=== PATIENT | female | born 1980 | race Two or more races ===

== ENCOUNTER 2020-10-16 08:43 | Inpatient (IN) | payer OTHER ==
[~2020-10-16] VITALS: Ht 172.7 cm; Wt 112.1 kg
[2020-10-16 09:49] LABS: Basophils # (auto) 0 10 ^3/uL (0-0.2); Basophils % (auto) 0.2 % (0.0-2.0); Eosinophils # (auto) 0 10 ^3/uL (0-0.8); Hematocrit 37.6 % (36.0-46.0); Hemoglobin 12.7 g/dL (12.2-16.2); Lymphocytes # (auto) 0.8 10 ^3/uL (0.4-5.4); Lymphocytes % (auto) 9.8 % (10.0-50.0); Mean Corpuscular Hgb Conc. 33.7 g/dL (32.0-36.0); Mean Corpuscular Volume 82.9 fL (80.0-100.0); Monocytes # (auto) 0.3 10 ^3/uL (0-1.3); Monocytes % (auto) 3.2 % (0.0-12.0); Neutrophils # (auto) 7.1 10 ^3/uL (1.6-8.6); Neutrophils % (auto) 86.8 % (37.0-80.0); Platelet Count (auto) 259 10^3/uL (140-450); Red Blood Cells 4.54 10^6/uL (4.0-5.20); Red Cell Distribution Width 13.1 % (11.8-14.3); White Blood Cell 8.2 10^3/uL (4.4-10.8)
[2020-10-16 10:18] LABS: Albumin 3.1 g/dL (3.4-5.0); Calcium 8.4 mg/dL (8.5-10.1); Potassium 3.1 mmol/L (3.5-5.1)
[2020-10-16 10:24] LABS: BUN/Creatinine Ratio 10.9; Bilirubin, Total 0.4 mg/dL (0.2-1.0); Total Protein 8.2 g/dL (6.4-8.2)
[2020-10-16] MEDS ORDERED: cefTRIAXone 1GM/50ML D5W 50 ML IV ONE (11:15)
[2020-10-16] MEDS ORDERED: DexAMETHasone SOD PHOS 10MG/1ML VIAL INJ IV ONE (11:15)
[2020-10-16] MEDS ORDERED: POTASSIUM EFFERVESENT TAB 25 MEQ PO ONE (11:15)
[2020-10-16] MEDS ORDERED: AZITHROMYCIN 500MG/ 250ML 250 ML IV ONE (11:15)
[2020-10-16 11:36] LABS: CRP High Sensitivity 8.63 mg/dL (< 0.3)
[2020-10-16] MEDS ORDERED: NITROGLYCERIN 0.4 MG SL TAB SL PRN (13:00)
[2020-10-16] MEDS ORDERED: MORPHINE SULF INJ 2 MG/ML SYRINGE 1ML IV PRN (13:00)
[2020-10-16 13:12] LABS: Urine Amorphous Crystal FEW /hpf (None Seen); Urine Bacteria MANY /hpf (None Seen); Urine Blood Negative /uL (Negative); Urine Mucus FEW (None Seen); Urine Specific Gravity 1.013 (1.001-1.035); Urine WBC 14 /hpf (0 - 5)
[2020-10-16] MEDS ORDERED: POTASSIUM CHL 20 Meq TABLET PO ONE (13:30)
[2020-10-16 19:28] LABS: Basophils # (auto) 0 10 ^3/uL (0-0.2); Basophils % (auto) 0.1 % (0.0-2.0); Eosinophils # (auto) 0 10 ^3/uL (0-0.8); Hematocrit 37.4 % (36.0-46.0); Hemoglobin 12.7 g/dL (12.2-16.2); Lymphocytes # (auto) 0.5 10 ^3/uL (0.4-5.4); Lymphocytes % (auto) 8.4 % (10.0-50.0); Mean Corpuscular Hemoglobin 28.2 pg (28.0-32.0); Monocytes # (auto) 0.1 10 ^3/uL (0-1.3); Monocytes % (auto) 2.1 % (0.0-12.0); Neutrophils # (auto) 5.2 10 ^3/uL (1.6-8.6); Neutrophils % (auto) 89.4 % (37.0-80.0); Nucleated Red Blood Cells % 0.1 %; Platelet Count (auto) 269 10^3/uL (140-450); Red Cell Distribution Width 13.1 % (11.8-14.3); White Blood Cell 5.9 10^3/uL (4.4-10.8)
[2020-10-16 19:45] LABS: Albumin 2.9 g/dL (3.4-5.0); Calcium 8.1 mg/dL (8.5-10.1); Magnesium 2.3 mg/dL (1.6-2.6); Potassium 3.7 mmol/L (3.5-5.1)
[2020-10-16 19:53] LABS: BUN/Creatinine Ratio 13.5; Bilirubin, Total 0.3 mg/dL (0.2-1.0); CRP High Sensitivity 9.62 mg/dL (< 0.3); Total Protein 8.3 g/dL (6.4-8.2)
[2020-10-16 22:40] VITALS: BP 110/56
[2020-10-17] VITALS: BP_SYST 110; BP_SYST 122; BP_DIAS 56; BP_DIAS 74
[2020-10-17 08:00] VITALS: BP 120/74
[2020-10-17] MEDS ORDERED: REMDESIVIR PER PHARMACY 0 ML IV SCH (09:00)
[2020-10-17] MEDS: ENOXAPARIN SOD 120 MG/0.8 ML SYRINGE SC SCH ×2 (09:18→21:40)
[2020-10-17] MEDS ORDERED: IOHEXOL 350 MG/ML 100ML IJ ONE (09:26)
[2020-10-17 10:26] LABS: Basophils # (auto) 0 10 ^3/uL (0-0.2); Basophils % (auto) 0.3 % (0.0-2.0); Eosinophils # (auto) 0 10 ^3/uL (0-0.8); Hematocrit 36.1 % (36.0-46.0); Lymphocytes # (auto) 1.1 10 ^3/uL (0.4-5.4); Lymphocytes % (auto) 8.4 % (10.0-50.0); Mean Corpuscular Hemoglobin 27.9 pg (28.0-32.0); Mean Corpuscular Hgb Conc. 33.4 g/dL (32.0-36.0); Mean Corpuscular Volume 83.7 fL (80.0-100.0); Monocytes # (auto) 0.7 10 ^3/uL (0-1.3); Neutrophils # (auto) 11.6 10 ^3/uL (1.6-8.6); Neutrophils % (auto) 86.3 % (37.0-80.0); Nucleated Red Blood Cells % 0.1 %; Platelet Count (auto) 262 10^3/uL (140-450); Red Blood Cells 4.31 10^6/uL (4.0-5.20); White Blood Cell 13.4 10^3/uL (4.4-10.8)
[2020-10-17 10:31] LABS: Albumin 2.9 g/dL (3.4-5.0); Calcium 8.4 mg/dL (8.5-10.1); Potassium 3.1 mmol/L (3.5-5.1)
[2020-10-17 10:40] LABS: BUN/Creatinine Ratio 17.2; Bilirubin, Total 0.3 mg/dL (0.2-1.0); CRP High Sensitivity 6.2 mg/dL (< 0.3); Total Protein 8.2 g/dL (6.4-8.2)
[2020-10-17] MEDS ORDERED: ALBUTEROL SULF 2.5 MG/0.5ML(0.5%) NEB SOLN ONE (14:05)
[2020-10-17] MEDS ORDERED: REMDESIVIR 200 MG in NS 210ml LOADING DOSE ADULT IV ONE (15:00)
[2020-10-17 15:42] VITALS: BP 110/65
[2020-10-17] MEDS: ASCORBIC ACID 500 MG TAB PO SCH (21:40)
[2020-10-18] VITALS: BP 118/69
[2020-10-18 07:09] LABS: Albumin 2.7 g/dL (3.4-5.0); Calcium 8.2 mg/dL (8.5-10.1); Potassium 3.1 mmol/L (3.5-5.1)
[2020-10-18 07:44] LABS: BUN/Creatinine Ratio 26.5; Bilirubin, Total 0.4 mg/dL (0.2-1.0); CRP High Sensitivity 6.17 mg/dL (< 0.3); Total Protein 7.7 g/dL (6.4-8.2)
[2020-10-18 08:00] VITALS: BP 95/55
[2020-10-18] MEDS: DexAMETHasone SOD PHOS 10MG/1ML VIAL INJ IV SCH (09:16)
[2020-10-18] MEDS: ZINC SULFATE 220mg CAP or TAB PO SCH (09:16)
[2020-10-18] MEDS: CHOLECALCIFEROL (VITD3) 1,000UNIT=25mCg TAB PO SCH (09:17)
[2020-10-18] MEDS: ASCORBIC ACID 500 MG TAB PO SCH ×2 (09:17→21:33)
[2020-10-18] MEDS: ENOXAPARIN SOD 120 MG/0.8 ML SYRINGE SC SCH ×2 (09:18→21:34)
[2020-10-18] MEDS ORDERED: ALBUTEROL SULF 2.5 MG/0.5ML(0.5%) NEB SOLN NEB ONE (10:00)
[2020-10-18] MEDS: REMDESIVIR 100mg 100 MG in SODIUM CHL 0.9% 230 ML IV SCH (15:18)
[2020-10-18 16:00] VITALS: BP 99/58
[2020-10-19] VITALS: BP 106/61
[2020-10-19 07:50] LABS: Albumin 2.7 g/dL (3.4-5.0); Calcium 8.5 mg/dL (8.5-10.1); Potassium 3.5 mmol/L (3.5-5.1)
[2020-10-19 07:54] LABS: BUN/Creatinine Ratio 27.1; Bilirubin, Total 0.3 mg/dL (0.2-1.0); Total Protein 7.8 g/dL (6.4-8.2)
[2020-10-19 08:00] VITALS: BP 98/50
[2020-10-19] MEDS: DexAMETHasone SOD PHOS 10MG/1ML VIAL INJ IV SCH (10:32)
[2020-10-19] MEDS: cefTRIAXone 1GM/50ML D5W 50 ML IV SCH (10:32)
[2020-10-19] MEDS: ZINC SULFATE 220mg CAP or TAB PO SCH (10:33)
[2020-10-19] MEDS: CHOLECALCIFEROL (VITD3) 1,000UNIT=25mCg TAB PO SCH (10:33)
[2020-10-19] MEDS: ASCORBIC ACID 500 MG TAB PO SCH ×2 (10:33→21:13)
[2020-10-19] MEDS: ENOXAPARIN SOD 120 MG/0.8 ML SYRINGE SC SCH ×2 (10:41→21:13)
[2020-10-19] MEDS: AZITHROMYCIN 500MG/ 250ML 250 ML IV SCH (12:39)
[2020-10-19] MEDS: REMDESIVIR 100mg 100 MG in SODIUM CHL 0.9% 230 ML IV SCH (15:15)
[2020-10-19 16:00] VITALS: BP 93/56
[2020-10-20] VITALS: BP 121/69
[2020-10-20 07:11] LABS: Basophils # (auto) 0 10 ^3/uL (0-0.2); Basophils % (auto) 0.2 % (0.0-2.0); Eosinophils # (auto) 0 10 ^3/uL (0-0.8); Hematocrit 36.1 % (36.0-46.0); Lymphocytes # (auto) 1.1 10 ^3/uL (0.4-5.4); Lymphocytes % (auto) 12.7 % (10.0-50.0); Mean Corpuscular Hgb Conc. 33.3 g/dL (32.0-36.0); Mean Corpuscular Volume 84.2 fL (80.0-100.0); Monocytes # (auto) 0.7 10 ^3/uL (0-1.3); Monocytes % (auto) 7.7 % (0.0-12.0); Neutrophils # (auto) 7.1 10 ^3/uL (1.6-8.6); Neutrophils % (auto) 79.4 % (37.0-80.0); Platelet Count (auto) 402 10^3/uL (140-450); Red Blood Cells 4.29 10^6/uL (4.0-5.20); Red Cell Distribution Width 12.9 % (11.8-14.3)
[2020-10-20 07:20] LABS: Albumin 2.6 g/dL (3.4-5.0); Calcium 8.2 mg/dL (8.5-10.1); Potassium 3.3 mmol/L (3.5-5.1)
[2020-10-20 07:28] LABS: BUN/Creatinine Ratio 27.7; Bilirubin, Total 0.3 mg/dL (0.2-1.0); CRP High Sensitivity 1.73 mg/dL (< 0.3); Total Protein 7.4 g/dL (6.4-8.2)
[2020-10-20] MEDS ORDERED: POTASSIUM CHL 20 Meq TABLET PO ONE (07:30)
[2020-10-20 08:00] VITALS: BP 102/54
[2020-10-20] MEDS: ASCORBIC ACID 500 MG TAB PO SCH ×2 (09:20→21:29)
[2020-10-20] MEDS: ZINC SULFATE 220mg CAP or TAB PO SCH (09:20)
[2020-10-20] MEDS: cefTRIAXone 1GM/50ML D5W 50 ML IV SCH (09:20)
[2020-10-20] MEDS: CHOLECALCIFEROL (VITD3) 1,000UNIT=25mCg TAB PO SCH (09:20)
[2020-10-20] MEDS: DexAMETHasone SOD PHOS 10MG/1ML VIAL INJ IV SCH (09:20)
[2020-10-20] MEDS: ENOXAPARIN SOD 120 MG/0.8 ML SYRINGE SC SCH ×2 (09:20→21:30)
[2020-10-20] MEDS: AZITHROMYCIN 500MG/ 250ML 250 ML IV SCH (10:55)
[2020-10-20 16:00] VITALS: BP 110/55
[2020-10-20] MEDS: REMDESIVIR 100mg 100 MG in SODIUM CHL 0.9% 230 ML IV SCH (19:29)
[2020-10-20] MEDS ORDERED: REMDESIVIR 200 MG in NS 210ml LOADING DOSE ADULT IV ONE (20:00)
[2020-10-20 23:55] VITALS: BP 114/72
[2020-10-21 06:31] LABS: Basophils # (auto) 0 10 ^3/uL (0-0.2); Basophils % (auto) 0.3 % (0.0-2.0); Eosinophils # (auto) 0 10 ^3/uL (0-0.8); Eosinophils % (auto) 0.2 % (0.0-7.0); Hematocrit 36.9 % (36.0-46.0); Hemoglobin 12.3 g/dL (12.2-16.2); Lymphocytes # (auto) 1.5 10 ^3/uL (0.4-5.4); Lymphocytes % (auto) 16.1 % (10.0-50.0); Mean Corpuscular Hemoglobin 27.7 pg (28.0-32.0); Mean Corpuscular Hgb Conc. 33.3 g/dL (32.0-36.0); Mean Corpuscular Volume 83.3 fL (80.0-100.0); Monocytes # (auto) 0.8 10 ^3/uL (0-1.3); Monocytes % (auto) 7.9 % (0.0-12.0); Neutrophils # (auto) 7.2 10 ^3/uL (1.6-8.6); Neutrophils % (auto) 75.5 % (37.0-80.0); Nucleated Red Blood Cells % 0.1 %; Platelet Count (auto) 408 10^3/uL (140-450); Red Blood Cells 4.43 10^6/uL (4.0-5.20); White Blood Cell 9.5 10^3/uL (4.4-10.8)
[2020-10-21 06:48] LABS: Albumin 2.7 g/dL (3.4-5.0); Calcium 8.3 mg/dL (8.5-10.1); Potassium 3.7 mmol/L (3.5-5.1)
[2020-10-21 06:52] LABS: BUN/Creatinine Ratio 28.3; Bilirubin, Total 0.4 mg/dL (0.2-1.0); Total Protein 7.3 g/dL (6.4-8.2)
[2020-10-21 08:00] VITALS: BP 95/51
[2020-10-21 08:12] VITALS: BP 95/51
[2020-10-21] MEDS: cefTRIAXone 1GM/50ML D5W 50 ML IV SCH (09:45)
[2020-10-21] MEDS: AZITHROMYCIN 500MG/ 250ML 250 ML IV SCH (11:40)
[2020-10-21] MEDS: ASCORBIC ACID 500 MG TAB PO SCH (11:40)
[2020-10-21] MEDS: CHOLECALCIFEROL (VITD3) 1,000UNIT=25mCg TAB PO SCH (11:40)
[2020-10-21] MEDS: DexAMETHasone SOD PHOS 10MG/1ML VIAL INJ IV SCH (11:40)
[2020-10-21] MEDS: ZINC SULFATE 220mg CAP or TAB PO SCH (11:40)
[2020-10-21] MEDS: ENOXAPARIN SOD 120 MG/0.8 ML SYRINGE SC SCH (11:40)
[2020-10-21 15:53] VITALS: BP 93/53
[2020-10-21] MEDS: REMDESIVIR 100mg 100 MG in SODIUM CHL 0.9% 230 ML IV SCH (16:55)
== END 2020-10-21 20:50 | disposition home health service (06) | DRG 177 ==
LOC: ER 08:43 → TELE 08:44 → TELE-WESTW 22:31
PROVIDERS: ADMIT Hospitalist; ATTEND Hospitalist
PROC: XW033E5 Introduction of Remdesivir Anti-infective into Peripheral Vein, Percutaneous Approach, New Technology Group 5 (ICD-10-PCS; principal; 2020-10-18)
DX: U07.1 COVID-19 (principal); J12.82 Pneumonia due to coronavirus disease 2019; J96.01 Acute respiratory failure with hypoxia; E44.1 Mild protein-calorie malnutrition; E87.6 Hypokalemia; E66.01 Morbid (severe) obesity due to excess calories; Z79.899 Other long term (current) drug therapy; Z68.37 Body mass index [BMI] 37.0-37.9, adult
CPT/HCPCS: 36415; 36600; 71045; 71275; 80053; 81001; 81025; 82728; 82805; 83605; 83615; 83735; 84132; 84443; 85025; 85379; 86141; 87426; 93005; 99291; G0378; J0696; J1100

== ENCOUNTER 2021-06-18 11:10 | Emergency (ER) | payer OTHER ==
[~2021-06-18] VITALS: Ht 165.1 cm; Wt 108.9 kg
[2021-06-18 11:55] LABS: Basophils # (auto) 0.1 10 ^3/uL (0-0.2); Basophils % (auto) 0.7 % (0.0-2.0); Eosinophils # (auto) 0.2 10 ^3/uL (0-0.8); Eosinophils % (auto) 2.4 % (0.0-7.0); Hematocrit 39.3 % (36.0-46.0); Lymphocytes # (auto) 2.7 10 ^3/uL (0.4-5.4); Lymphocytes % (auto) 31.6 % (10.0-50.0); Mean Corpuscular Hemoglobin 27.8 pg (28.0-32.0); Mean Corpuscular Hgb Conc. 33.1 g/dL (32.0-36.0); Mean Corpuscular Volume 83.9 fL (80.0-100.0); Monocytes # (auto) 0.5 10 ^3/uL (0-1.3); Monocytes % (auto) 5.4 % (0.0-12.0); Neutrophils # (auto) 5.2 10 ^3/uL (1.6-8.6); Neutrophils % (auto) 59.9 % (37.0-80.0); Nucleated Red Blood Cells % 0.1 %; Red Blood Cells 4.68 10^6/uL (4.0-5.20); Red Cell Distribution Width 12.8 % (11.8-14.3); White Blood Cell 8.7 10^3/uL (4.4-10.8)
[2021-06-18 12:09] LABS: Albumin 3.5 g/dL (3.4-5.0); Anion Gap 6 (5-15); Blood Urea Nitrogen 14 mg/dL (7-18); Carbon Dioxide 24 mmol/L (21-32); Chloride 107 mmol/L (98-107); Glucose 91 mg/dL (74-106); Potassium 3.7 mmol/L (3.5-5.1); Sodium 137 mmol/L (136-145)
[2021-06-18 12:14] LABS: Alanine Aminotransferase 31 U/L (13-56); Alkaline Phosphatase 82 U/L (45-117); Aspartate Aminotransferase 22 U/L (15-37); BUN/Creatinine Ratio 24.1; Bilirubin, Total 0.3 mg/dL (0.2-1.0); GFR African American 148 mL/min; GFR Non-African American 122 mL/min; Total Protein 7.9 g/dL (6.4-8.2)
[2021-06-18 14:43] LABS: Urine Bacteria FEW /hpf (None Seen); Urine Blood Negative /uL (Negative); Urine Specific Gravity 1.018 (1.001-1.035); Urine WBC 56 /hpf (0 - 5)
[2021-06-18 15:06] VITALS: BP 132/77
== END 2021-06-18 15:07 | disposition home or self-care (01) ==
LOC: ER 11:10
DX: R42 Dizziness and giddiness (principal); N39.0 Urinary tract infection, site not specified; Z32.02 Encounter for pregnancy test, result negative
CPT/HCPCS: 36415; 80053; 81001; 81025; 84484; 85025; 93005